=== PATIENT | female | born 1965 | race Hispanic/Latino ===

== ENCOUNTER → 2018-01-28 | Day surgery (SDC) | payer OTHER ==
[~2018-01-28] MED LIST: ACETAMINOPHEN 1000 MG/100 ML IV ONE; CEFAZOLIN SOD 2 GM/D5W 50ML 50 ML IV ONE; DEXAMETHASONE SOD PHOS INJ 4 MG/ML VIAL ONE; EPINEPHRINE HCL INJ 1 MG/ML AMP IV ONE; FENTANYL CITRATE/PF 100MCG/2 ML INJ ONE; KETOROLAC TROMETHAMINE 30 MG/ML VIAL ONE; LIDOCAINE 2%/ EPINEPHRINE 20ML MDV ONE; LIDOCAINE HCL 2% LOCAL INJ 5 ML SDV VIAL INJ ONE; MEPERIDINE HCL INJ 50 MG/ML INJ ONE; MIDAZOLAM HCL 2 MG/2 ML VIAL ONE; MULTI-VITAMIN1 EACH PO; OMEGA 3 1,0001 EACH PO; ONDANSETRON HCL INJ 2 MG/ML VIAL ONE; PROPOFOL IV EMULSION 10 MG/ML 20 ML VIAL ONE; ROCURONIUM BROMIDE 10 MG/ML 5ML VIAL ONE; ROPIVACAINE 0.5% 5 MG/ML 30 ML SDV ONE; SEVOFLURANE INHAL SOLN 250 ML PEN BTL ONE; [UNRECOGNIZED DRUG - OTHER] PO
[2018-01-28 14:10] VITALS: BP 140/78
--- NOTE | 2018-01-29 17:26 | Operative Report ---
DATE OF PROCEDURE: January 28, 2018 PREOPERATIVE DIAGNOSES 1. Right rotator cuff tear. 2. Right acromioclavicular joint arthrosis. POSTOPERATIVE DIAGNOSES 1. Right rotator cuff tear. 2. Right shoulder synovitis. 3. Right shoulder acromioclavicular joint arthrosis. OPERATION/PROCEDURE PERFORMED: 1. Right shoulder examination under anesthesia. 2. Right shoulder arthroscopy. 3. Right shoulder arthroscopic debridement of synovitis. 4. Right shoulder arthroscopic rotator cuff reconstruction. 5. Right shoulder arthroscopic subacromial decompression and acromioplasty. 6. Right shoulder arthroscopic distal clavicle resection. TECHNICAL SPECIALIST CYTOGENETICS: None. ANESTHESIA: General endotracheal intubation anesthesia. IV FLUIDS: Per the anesthesia record. BRIEF DESCRIPTION OF THE PATIENT'S OPERATIVE PROCEDURE: Ms. Santos was taken to the operating room and placed in supine position on operating table. Following induction of general anesthesia as well as endotracheal intubation, the patient's right upper extremity was examined under anesthesia. She was found to have full passive range of motion of the shoulder joint. She had no gross abnormalities to the appearance of the shoulder. The patient's upper extremity was prepped and draped in standard surgical fashion. Case was begun by creating standard posterolateral and anterior portals without difficulty. Scope was placed within the shoulder joint atraumatically and examination of glenohumeral articulation demonstrated no significant evidence of chondromalacia. There was synovitis within the shoulder joint. A probe was placed in the shoulder joint, and the biceps tendon was found to be contained within the shoulder joint. The biceps tendon was in condition. There were no loose bodies in the shoulder. There was a near full-thickness rotator cuff tear at the anterior leading edge of the rotator cuff tissue. An elevator was used to elevate the torn portion and a shaver was used to debride the bony surface to a bleeding bony bed. The synovitis was also debrided at this time. The shoulder was deflated of its sterile normal saline. Scope was placed in subacromial space, and a lateral portal was created through an outside-in technique. Significant bursal inflammation was encountered in the subacromial space. A bursectomy was performed. The patient had a very markedly lateral downward sloping acromion that was impinging behind the rotator cuff tissue. The bursal surface rotator cuff tissue was severely macerated. A shaver was used to debride the rotator cuff tissue. The insertion site for the rotator cuff was also debrided to a bleeding bony bed. A single anchor was inserted into the greater tuberosity of the humerus and the suture arms from that anchor were then woven through the rotator cuff tissue and the rotator cuff tissue was then advanced into its normal insertion site. An aggressive acromioplasty was performed. The coracoacromial ligament was also resected at this time. The anterior portal was then transferred into the subacromial space at the level of the AC joint. The acromioclavicular joint was identified and isolated. A 1 cm section of the distal clavicle was then resected using a shaver. The shoulder was deflated of its sterile normal saline. The portal sites were closed using 4-0 nylon suture. Portal sites were closed and sterile dressings were applied. The patient was provided a shoulder immobilizer, awakened and taken to post anesthesia care unit in stable condition. Job#: [id number]
== END | disposition home or self-care (01) ==
LOC: OR 08:00
PROVIDERS: ATTEND Specialist
DX: M75.121 Complete rotator cuff tear or rupture of right shoulder, not specified as traumatic (principal); M19.011 Primary osteoarthritis, right shoulder; M65.811 Other synovitis and tenosynovitis, right shoulder; R00.1 Bradycardia, unspecified; Z01.810 Encounter for preprocedural cardiovascular examination
CPT/HCPCS: 29824; 29826; 29827; 93005; J0171; J1100; J1885; J2001 ×2; J2175; J2250; J2405; J2795